=== PATIENT | female | born 1965 | race African-American/Black ===

== ENCOUNTER 2019-01-17 17:18 | Inpatient (IN) ==
[2019-01-17 18:14] LABS: HEMATOCRIT 28.4 % (37.0-47.0); HEMOGLOBIN 9.3 g/dL (12.0-16.0); MCH 25.1 PG (27-31); MCHC 32.7 g/dL (33-37); MCV 76.5 FL (81-99); RBC 3.71 XMIL (4.2-5.4); RDW 17.7 % (11.5-14.5); WBC 9.78 X1000 (4.8-10.8)
[2019-01-17 18:15] LABS: BASO# 0.04 X1000 (0.0-0.2); BASO% 0.4 % (0.0-0.8); EOS# 0.01 X1000 (0.0-0.7); EOS% 0.1 % (0.0-10.0); IMM GRAN# 0.02 X1000 (0.0-0.04); LYMPH# 0.68 X1000 (1.2-3.4); LYMPH% 6.9 % (20.5-51.1); MONO# 0.44 X1000 (0.11-0.59); MONO% 4.1 % (1.7-9.3); MPV 10.4 FL (7.4-10.4); NEUT# 8.68 X1000 (1.4-6.5); NEUT% 87.9 % (42.2-75.2); PLT 376 X1000 (130-400)
[2019-01-17 18:21] LABS: INR 0.9; PROTIME 12.6 Seconds (11.0-16.0)
[2019-01-17 18:24] LABS: AGAP 11; ALKALINE PHOSPHATASE 54 U/L (32-104); BUN 44 mg/dL (8-22); CALCIUM 8.9 mg/dL (8.8-10.2); CHLORIDE 108 mmol/L (98-107); COSMO 294; CREATININE 0.6 mg/dL (0.5-0.9); ESTIMATED GFR > 60; GLUCOSE 125 mg/dL (70-104); GOT 12 U/L (10-30); GPT 11 U/L (10-36); POTASSIUM 3.9 mmol/L (3.5-5.1); SODIUM 141 mmol/L (136-145); TCO2 22 mmol/L (25-35); TOTAL PROTEIN 7.3 g/dL (6.3-8.3)
[2019-01-17 18:33] LABS: ANISOCYTOSIS 1+; LYMPHS 6 % (21-51); MICROCYTOSIS 1+; MONO 3 % (1-9); SEGS 91 % (42-75)
[2019-01-17 18:58] LABS: BILIRUBIN URINE NEGATIVE (NEGATIVE); BLOOD URINE 4+ (NEGATIVE); GLUCOSE URINE NEGATIVE (NEGATIVE); KETONE URINE NEGATIVE (NEGATIVE); LEUKOCYTES URINE TRACE (NEGATIVE); NITRITE URINE NEGATIVE (NEGATIVE); PROTEIN URINE NEGATIVE (NEGATIVE); SP GRAVITY URINE 1.015; UROBILINOGEN URINE NORMAL
[2019-01-17 18:59] LABS: CLARITY CLOUDY (CLEAR); COLOR BROWN; URINE SOURCE CLEAN CATCH
[2019-01-17 19:01] LABS: URINE BACTERIA 4+ /HFP; URINE CAST NONE SEEN /LPF; URINE CRYSTAL NONE SEEN /HPF; URINE EPITHELIAL CELLS >10 /HPF (<10); URINE WBC <10 /HPF (<10); URINE YEAST NONE SEEN /HPF
[2019-01-17] MEDS ORDERED: PROTONIX IV ONE (19:17)
[2019-01-17] MEDS ORDERED: SODIUM CHLORIDE 0.9% INJ ONE (19:17)
[2019-01-17] MEDS ORDERED: NS 1,000 ML IV ONE ×3 (19:17→23:05)
[2019-01-17] MEDS ORDERED: MORPHINE IV ONE (19:19)
[2019-01-17] MEDS ORDERED: ZOFRAN IV ONE (19:19)
[2019-01-17] MEDS ORDERED: ZOFRAN IV PRN ×2 (19:20→23:06)
--- NOTE | 2019-01-17 19:20 | PROVIDER DOCUMENTATION ---
HPI-Abdominal Pain/GI Problem - General Chief Complaint: GI Bleed Stated Complaint: VOMITING Time Seen by Provider: 01/17/19 18:57 Source: patient Allergies/Adverse Reactions: Patient Allergies Allergy/AdvReac Type Severity Reaction Status Date / Time No Known Allergies Allergy Verified 12/03/14 06:48 Home Medications: Home Medication List Medication Instructions Recorded Confirmed Last Taken Type NK [No Home Medications] 01/18/19 01/18/19 Unknown History - History of Present Illness-ABD Nature of Presenting Problems: Patient is a 53 year old black female with history of sarcoidosis and daily use of Goody powder for arthritis complaining of coffee ground emesis and melena since this am. Denies current use of blood thinners. Abdominal Pain Onset Location: reports: generalized abdomen Pain Radiation: reports: no radiation Timing: reports: intermittent Dark Stools Present?: reports: black Emesis Description: reports: coffee grounds Bruising or Bleeding Gums?: No Similar Symptoms Previously?: No Recently seen or treated by another doctor?: No Review of Systems - Adult - REVIEW OF SYSTEMS - ADULT Constitutional: reports: see HPI. denies: chills, fever Eyes: reports: no symptoms reported Ears, Nose, Mouth & Throat: reports: no symptoms reported Cardiovascular: reports: no symptoms reported Respiratory: denies: shortness of breath Gastrointestinal: reports: abdominal pain, hematemesis, nausea, rectal bleeding Genitourinary: denies: dysuria Musculoskeletal: reports: no symptoms reported Integumentary: reports: no symptoms reported Neurological: reports: no symptoms reported Psychiatric: reports: no symptoms reported Endocrine: reports: no symptoms reported Hematologic/Lymphatic: reports: see HPI Allergic/Immunologic: reports: no symptoms reported All Other Systems: Reviewed and Negative Past History - Adult - PAST MEDICAL HISTORY-ADULT Review of Records: reports: Old Records Reviewed, Nursing Assessment Review, Medications Reviewed, Social history reviewed & non-contributory. Major Childhood Illnesses: reports: denies history Cardiovascular: reports: denies history Respiratory: reports: denies history Gastrointestinal: reports: denies history Genitourinary: reports: denies history Musculoskeletal: reports: denies history Neurological: reports: denies history Endocrine/Immune: reports: anemia, other Other Conditions: reports: denies history - PRIOR SURGERIES/PROCEDURES Surgical/Procedure History: reports: none - FAMILY HISTORY Family History: reviewed, not pertinent Physical Exam-General - PHYSICAL EXAM-ADULT Initial Vital Signs Reviewed: Yes - CONSTITUTIONAL General Appearance: alert, no apparent distress - EYES Eyes: other (clear, pale mucosa) - HEAD, EARS, NOSE, MOUTH & THROAT HENMT: moist mucous membranes - NECK Neck: non-tender, full range of motion, supple - RESPIRATORY Respiratory: lungs clear - CARDIOVASCULAR Cardiovascular: tachycardia - GASTROINTESTINAL (ABDOMEN) Abdominal Exam: soft, other (firm enlarged uterus, no active bleeding, heme positive dark stools). negative: guarding, rebound - LYMPHATIC Lymphatic: no adenopathy - MUSCULOSKELETAL Back Exam: normal inspection Extremity: normal range of motion, non-tender - SKIN Integumentary: other (pale) - NEUROLOGIC Neurologic: grossly normal - PSYCHIATRIC Psych/Mental Status: anxious Progress - PLAN OF CARE/RESULTS Progress/Plan/Lab Results: Vital Signs - 8 hr 01/17/19 17:27 Temperature 98 F Pulse Rate 129 H Respiratory Rate 18 Blood Pressure 128/52 O2 Sat by Pulse Oximetry 99 Laboratory Results - last 24 hr 01/17/19 01/17/19 01/17/19 17:50 17:50 17:50 WBC 9.78 RBC 3.71 L Hgb 9.3 L Hct 28.4 L MCV 76.5 L MCH 25.1 L MCHC 32.7 L RDW Std Deviation 17.7 H Plt Count 376 MPV 10.4 Neut % (Auto) 87.9 H Lymph % (Auto) 6.9 L [place] % (Auto) 4.1 Eos % (Auto) 0.1 Baso % (Auto) 0.4 Immature Gran # (Auto) 0.02 Neut # (Auto) 8.68 H Lymph # (Auto) 0.68 L [place] # (Auto) 0.44 Eos # (Auto) 0.01 Baso # (Auto) 0.04 Segmented Neutrophils 91 H Lymphocytes 6 L Monocytes 3 Anisocytosis 1+ Microcytosis 1+ PT INR Sodium 141 Potassium 3.9 Chloride 108 H Carbon Dioxide 22 L Anion Gap 11 BUN 44 H Creatinine 0.6 Estimated GFR/1.73 m2 > 60 BUN/Creatinine Ratio 73 Glucose 125 H Calculated Osmolality 294 Calcium 8.9 Total Bilirubin 0.30 AST 12 ALT 11 Alkaline Phosphatase 54 Total Protein 7.3 Albumin 4.0 Globulin 3.0 Albumin/Globulin Ratio 1.0 Urine Source Urine Color Urine Clarity Urine pH Ur Specific [place] Urine Protein Urine Ketones Urine Blood Urine Nitrite Urine Bilirubin Urine Urobilinogen Urine Microscopic RBC Urine WBC Urine Microscopic WBC Ur Epithelial Cells Urine Crystals Urine Bacteria Urine Casts Urine Yeast Urine Glucose Urine Test Blood Type A POSITIVE Antibody Screen NEGATIVE 01/17/19 01/17/19 01/17/19 17:50 18:30 18:30 WBC RBC Hgb Hct MCV MCH MCHC RDW Std Deviation Plt Count MPV Neut % (Auto) Lymph % (Auto) [place] % (Auto) Eos % (Auto) Baso % (Auto) Immature Gran # (Auto) Neut # (Auto) Lymph # (Auto) [place] # (Auto) Eos # (Auto) Baso # (Auto) Segmented Neutrophils Lymphocytes Monocytes Anisocytosis Microcytosis PT 12.6 INR 0.90 Sodium Potassium Chloride Carbon Dioxide Anion Gap BUN Creatinine Estimated GFR/1.73 m2 BUN/Creatinine Ratio Glucose Calculated Osmolality Calcium Total Bilirubin AST ALT Alkaline Phosphatase Total Protein Albumin Globulin Albumin/Globulin Ratio Urine Source CLEAN CATCH Urine Color BROWN Urine Clarity CLOUDY A Urine pH 5.0 Ur Specific [place] 1.015 Urine Protein NEGATIVE Urine Ketones NEGATIVE Urine Blood 4+ Urine Nitrite NEGATIVE Urine Bilirubin NEGATIVE Urine Urobilinogen NORMAL Urine Microscopic RBC 10-20 A Urine WBC TRACE A Urine Microscopic WBC <10 Ur Epithelial Cells >10 A Urine Crystals NONE SEEN Urine Bacteria 4+ Urine Casts NONE SEEN Urine Yeast NONE SEEN Urine Glucose NEGATIVE Urine Test NEGATIVE Blood Type Antibody Screen Orders Category Date Time Status CBC WITH DIFF [HEME] Stat Lab 01/17/19 17:50 Completed COMPREHENSIVE METABOLIC PANEL [CHEM] Stat Lab 01/17/19 17:50 Completed OCCULT BLOOD SCREEN STOOL PL Stat Lab 01/17/19 17:47 Ordered TEST-URINE [PREG] Stat Lab 01/17/19 18:30 Completed PROTIME WITH INR [COAG] Stat Lab 01/17/19 17:50 Completed TYPE & SCREEN [BBK] Stat Lab 01/17/19 17:[address] W/POSS RFLX CULT [URINALYSIS] Stat Lab 01/17/19 18:30 Completed URINE CULTURE [RM] Routine Lab 01/17/19 19:02 Ordered 0.9% Sodium Chloride Inj [Ns] 1,000 ml Med 01/17/19 19:17 Active IV 999 mls/hr Pantoprazole [Protonix] Med 01/17/19 19:17 Once 40 mg IV NOW ONE Sodium Chloride 0.9% Med 01/17/19 19:17 Once 10 ml INJ NOW ONE Result Diagrams: 01/18/19 01:25 01/17/19 17:50 - CONSULTS/PCP/HOSPITALIST Notification #1 *Consult/PCP/Hospitalist*: Dr. Reddy, GI doctor Time Discussed: 19:15 Reason/Comments: transfer to [facility] to hospitalist service Consult Disposition: Admit #2 Consult: Dr. Viera, hospitalist Time Discussed: 19:25 Reason/Comments: accepts patient Consult Disposition: Admit Departure - Departure Date of Disposition Decision: 01/17/19 Time of Disposition Decision: 23:56 DIAGNOSIS: GI bleeding Qualifiers: GI bleed type/associated pathology: melena Qualified Code(s): K92.1 - Melena Anemia Qualifiers: Anemia type: unspecified type Qualified Code(s): D64.9 - Anemia, unspecified Disposition: ADMITTED INPATIENT 09 Certified Medical Emergency: Emergent Condition: Stable - Critical Care Note This patient required my direct & personal management of CC.: No Total Time (mins): 45 Critical Care Statement: This patient required my direct personal management to treat or rule out processes, the absence of which, could potentiallly result in sudden, clinically significant life or limb threatening deterioration. Attestation - Physician/ NHUNG Attestation Patient care was provided by Advanced Practice Provider:: No The physician spent face to face time with patient:: Yes Advanced Practice Provider documentation review:: Supervising physician onsite and consulted in the evaluation and care of this patient. The physician did have a face to face encounter with the patient.
[2019-01-17] MEDS: PROTONIX 80 MG in NS 80 ML IV SCH (20:10)
[2019-01-17 21:42] LABS: HEMATOCRIT 24.1 % (37.0-47.0); HEMOGLOBIN 7.9 g/dL (12.0-16.0)
[2019-01-17] MEDS: MORPHINE IV PRN (23:31)
[2019-01-18 01:36] LABS: HEMATOCRIT 22.6 % (37.0-47.0); HEMOGLOBIN 7.2 g/dL (12.0-16.0)
--- NOTE | 2019-01-18 04:04 | HISTORY AND PHYSICAL ---
CHIEF COMPLAINT: Coffee-ground emesis as well as melena, recent onset. HISTORY OF PRESENT ILLNESS: Ms. Nikia Concepcion is a 51-year-old female who has a history of sarcoidosis, hypertension, rheumatoid arthritis, and presents to the hospital because of coffee- ground emesis as well as melena which has been of recent onset. She has had associated abdominal pains. She denies any diarrhea or constipation. No fever. The patient was seen and evaluated in the ER. The patient has been started on a proton pump inhibitor, and also she is noted to be anemic. Initial hematocrit being 28.4. The patient admitted now to the floor for further management. PAST MEDICAL HISTORY: Sarcoidosis, hypertension, rheumatoid arthritis. SOCIAL HISTORY: Patient smokes cigarettes and drinks alcohol. ALLERGIES: No known drug allergies. FAMILY HISTORY: Positive for cancer. PAST SURGICAL HISTORY: She has had a [*] in the past. MEDICATIONS INCLUDE: 1. Tylenol with Codeine 1 every 6 hours p.r.n. 2. Lisinopril/hydrochlorothiazide 20-12.5 daily. 3. Prednisone 10 mg p.o. twice a day. REVIEW OF SYSTEMS: Constitutional: No fevers. SMASHER HAND: Has headaches. Respiratory: Has cough. Cardiovascular: No chest pain. Genitourinary: No dysuria. Musculoskeletal: Has chest pains. Psychiatry: Has depression. Dermatology: Has skin lesions. Hematology: No bleeding problems. Endocrinology: No diabetes. No thyroid disease. PHYSICAL EXAMINATION: VITAL SIGNS ARE FOLLOWS: Temperature 97.9 degrees, pulse 106, respirations 17, blood pressure 165/72, oxygen saturation is 100%. HEENT: Atraumatic, normocephalic. She is anicteric. Extraocular movements intact. No oral lesions noted. NECK: No lymphadenopathy, no thyromegaly. CARDIOVASCULAR: S1, S2. RESPIRATORY SYSTEM: Has evidence of good air entry bilaterally. ABDOMEN: Distended and she does have a suprapubic mass which is palpable. No significant tenderness. EXTREMITIES: No evidence of edema. CENTRAL NERVOUS SYSTEM: No obvious focal deficits noted. LABS: WBC 9.78, hematocrit is 24.4, with a platelet count of 376,000. INR is 0.9. Serum sodium is 141, potassium 3.9, chloride is 108, bicarb 23, BUN is 44, creatinine 0 6. Urine is cloudy with trace amount of WBCs. ASSESSMENT AND PLAN: This is a 51-year-old female who presented to hospital because of coffee- ground emesis as well as melena. She is noted to have an abdominal mass. 1. Gastrointestinal bleed. We will maintain patient on proton pump inhibitor. Monitor hemoglobin and hematocrit, transfuse packed red blood cells as needed. Consult with Gastroenterology. 2. Anemia. Check iron studies along with a B12, and also folate levels. Transfuse packed red blood cells as needed. 3. History of sarcoidosis. Continue prednisone. 4. History of rheumatoid arthritis. Continue analgesics/steroids. 5. Hypertension. Continue current antihypertensive regimen. 6. Abdominal mass. CT abdomen and pelvis done, report pending. 7. Deep vein thrombosis prophylaxis. Sequential compression devices. 8. Gastrointestinal prophylaxis. Proton pump inhibitor. cc: Des Viera MD
[2019-01-18] MEDS: PROTONIX 80 MG in NS 80 ML IV SCH ×2 (05:36→16:53)
--- NOTE | 2019-01-18 08:15 | Diag Imaging Result Doc PS360 ---
EXAM: CT ABD/PELVIS W/IV CONT ONLY HISTORY: gi bleed TECHNIQUE: CT abdomen and pelvis with intravenous contrast COMPARISON: None. FINDINGS: No calcified gallstones or adjacent inflammation. No focal hepatic abnormality although there is mild fatty infiltration. Tiny hiatal hernia. Normal spleen, pancreas, adrenal glands, and kidneys. No hydronephrosis. Normal aorta. The uterus is markedly enlarged measuring at least 16 x 17 x 18 cm. It contains multiple hypodense masses. Several of these contain calcification. The largest measures over 13 mm. Normal left ovary. The right ovary is not identified. The urinary bladder is mildly distended and is normal. IMPRESSION: Markedly enlarged uterus containing multiple fibroids A preliminary report was given at 1:45 AM This exam was performed using automated exposure control, adjustment of mA or kV according to patient size, and/or use of iterative reconstruction technique. Electronically signed by [place] 01/18/2019 8:12 AM
[2019-01-18] MEDS ORDERED: DIPRIVAN 1% ONE ×2 (08:47→10:52)
[2019-01-18] MEDS: PRINZIDE 20/12.5MG PO SCH (12:29)
[2019-01-18] MEDS: PREDNISONE PO SCH ×2 (12:29→21:01)
[2019-01-18] MEDS: CARAFATE LIQUID PO SCH ×2 (12:29→18:27)
[2019-01-18 13:25] LABS: BASO# 0.03 X1000 (0.0-0.2); BASO% 0.3 % (0.0-0.8); EOS# 0.18 X1000 (0.0-0.7); EOS% 2.1 % (0.0-10.0); HEMATOCRIT 30.4 % (37.0-47.0); HEMOGLOBIN 9.7 g/dL (12.0-16.0); LYMPH# 1.09 X1000 (1.2-3.4); LYMPH% 12.5 % (20.5-51.1); MCH 26.5 PG (27-31); MCHC 31.9 g/dL (33-37); MCV 83.1 FL (81-99); MONO# 0.65 X1000 (0.11-0.59); MONO% 7.4 % (1.7-9.3); MPV 10.7 FL (7.4-10.4); NEUT% 77.7 % (42.2-75.2); PLT 240 X1000 (130-400); RBC 3.66 XMIL (4.2-5.4); RDW 17.3 % (11.5-14.5); WBC 8.75 X1000 (4.8-10.8)
[2019-01-18 14:07] LABS: AGAP 8; ALB/GLOB RATIO 1.6; ALBUMIN 3.6 g/dL (3.5-5.0); ALKALINE PHOSPHATASE 45 U/L (32-104); BUN 27 mg/dL (8-22); CALCIUM 8.6 mg/dL (8.8-10.2); CHLORIDE 110 mmol/L (98-107); COSMO 286; CREATININE 0.7 mg/dL (0.5-0.9); ESTIMATED GFR > 60; GLUCOSE 98 mg/dL (70-104); GOT 14 U/L (10-30); GPT 10 U/L (10-36); POTASSIUM 4.2 mmol/L (3.5-5.1); SODIUM 141 mmol/L (136-145); TCO2 23 mmol/L (25-35); TOTAL BILIRUBIN 0.35 mg/dL (0.20-1.00); TOTAL PROTEIN 5.9 g/dL (6.3-8.3)
[2019-01-18 14:20] LABS: IRON SATURATION 6 %; TIBC 370 ug/dL; TOTAL IRON 22 ug/dL (49-151); UNBOUND IRON 348 ug/dL (112-346)
[2019-01-18 14:38] LABS: FERRITIN 11 ng/mL (13-150)
--- NOTE | 2019-01-18 15:00 | PROGRESS NOTE ---
DATE: 01/18/2019 SUBJECTIVE: This patient is resting comfortably in bed. She is complaining of some abdominal discomfort. Otherwise, she is feeling good. OBJECTIVE: Vital Signs: Temperature 98 degrees, pulse 94, respiratory rate 18, blood pressure 156/72, oxygen saturation 100% on room air. HEENT: Head normocephalic. No trauma. PERRLA. Neck: Supple. No JVD. No masses. Central trachea. Chest: Clear to auscultation. No wheezing. No rales. Abdomen: Soft. Tenderness to palpation at the level of the epigastric area. I do feel some irregular induration at the level of the suprapubic area. Extremities: No edema. No clubbing. No cyanosis. Neurological: The patient is alert and oriented x3. No focal deficits. LABORATORY: WBC 8.7, hemoglobin 9.7, hematocrit 30.4, platelet 240,000. Sodium 141, potassium 4.2, chloride 110, bicarbonate 23, BUN 27, creatinine 0.7, glucose 98, calcium 8.2. Iron 22, ferritin level is 11. ASSESSMENT AND PLAN: 1. Upper gastrointestinal bleed. This patient has been already scoped by Gastroenterology Department. They apparently found a gastric ulcer. We will continue with Protonix and follow the recommendations of Gastroenterology Department. I discussed the case with Dr. Reddy who wants to keep the patient at least 48 hours to see if she rebleeds. Monitor the hemoglobin and hematocrit. 2. History of sarcoidosis. Aware. 3. Iron deficiency anemia. She already received some blood transfusion, 2 of them. Will monitor. 4. Hypertension. Continue with the same management. 5. Abdominal mass. CT of the abdomen has been done and reporting a markedly enlarged uterus containing multiple fibroids. 6. Gastrointestinal prophylaxis with proton pump inhibitors. 7. Deep vein thrombosis prophylaxis with SCDs due to her recent GI bleed. cc: Clarence Umana MD
--- NOTE | 2019-01-18 16:31 | OPERATIVE NOTE ---
PROCEDURE DATE: 01/18/2019 REFERRING PHYSICIAN: Dr. Buenrostro. PROCEDURE: Esophagogastroduodenoscopy. POSTOPERATIVE DIAGNOSES: 1. Hematemesis at home. 2. Melena. 3. Anemia, requiring blood transfusion. 4. History of Goody Powders, taking almost every day, last one was on Saturday. POSTOPERATIVE DIAGNOSES: 1. Esophagitis in distal esophagus. 2. Irregular Z-line at 33 cm. 3. 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 we did not biopsy. 4. Hiatal hernia 3 to 4 cm, sliding type. 5. Evidence of a large gastric antral ulcer, clean base. 6. Evidence of erosive gastric body antrum. 7. Normal fundus, cardia, incisura on retroflexion. Normal duodenal bulb, second portion. 8. No evidence of active bleeding. Fresh or old blood noted in the entire EGD. ESTIMATED BLOOD LOSS: None. COMPLICATIONS: None. ANESTHESIA: Monitored anesthesia care per the anesthesiologist. SPECIMENS COLLECTED: None. PROCEDURE DETAILS: After informed consent, the patient explained the risks, benefits, indications, alternatives to the procedure of EGD. The risks and benefits of the procedure, including infection, bleeding, pain, trauma to the surrounding structures, perforation, , were explained to the patient among others and she acknowledged this and agreed to proceed with the procedure. The patient was brought to the OR. She was turned to the left lateral position. A bite block was placed in patient mouth. After adequate monitored anesthesia, the upper scope was introduced all the way to the second portion of the duodenum. The esophagus was normal. The proximal, middle third and distal showed there was evidence of irregular Z-line at 33 cm. There was evidence of probable Monae esophagus measuring about 3 cm in the form of a tongue. There was evidence of esophagitis distal esophagus in the form of erythema, erosions suggesting reflux esophagitis LA grade 1. There was evidence of hiatal hernia, 3 to 4 cm, sliding type. There was evidence of stomach ulcers in the gastric antrum measuring about 1 cm, a clean base. There was evidence of surrounding erythema and erosive gastritis in the body and antrum. Retroflexion of normal fundus, cardia, incisura. The duodenal bulb and second portion of duodenum appeared normal. There was no evidence of active bleeding. Fresh or old blood in the entire EGD. The base of the ulcer was clean. There was no evidence of any visible vessel or clot. The air was slowly withdrawn. The patient tolerated this well and is currently monitored in the OR in stable condition. RECOMMENDATIONS: 1. The patient will be on a clear liquid diet for the next two days and advance as tolerated. 2. Patient will be on Protonix drip for 72 hours and then wean down to Protonix twice daily for 3 months. We will start patient on Carafate 1 g 6 hours for 6 weeks. Next, the patient will start on Iron C b.i.d. and multivitamin once daily. 3. The patient will follow up with me in 4 weeks of discharge. The patient will need repeat EGD to document healing of the ulcer. Patient counseled to quit using Goody's Powders and other NSAIDs completely. 4. The patient has sarcoidosis, she is on prednisone. So she could have delayed healing of the ulcer. So we will treat her with Protonix twice daily on discharge. 5. We will continue to follow blood counts, transfuse as needed. 6. Above discussed with the patient's family. All questions answered. 7. Further recommendations are pending the hospital course. Please call us with any further questions. cc: MD Vu Alofrd [facility]
[2019-01-18] MEDS: MORPHINE IV PRN (18:54)
[2019-01-18] MEDS: ICAR-C PO SCH (21:01)
[2019-01-19] MEDS: PROTONIX 80 MG in NS 80 ML IV SCH ×3 (02:00→21:41)
[2019-01-19] MEDS: CARAFATE LIQUID PO SCH ×5 (02:00→23:26)
[2019-01-19 07:28] LABS: BASO# 0.02 X1000 (0.0-0.2); BASO% 0.2 % (0.0-0.8); EOS# 0.11 X1000 (0.0-0.7); EOS% 1.2 % (0.0-10.0); HEMATOCRIT 30.3 % (37.0-47.0); IMM GRAN# 0.02 X1000 (0.0-0.04); IMM GRAN% 0.2 % (0.0-0.5); LYMPH# 1.37 X1000 (1.2-3.4); LYMPH% 15.1 % (20.5-51.1); MCH 26.3 PG (27-31); MCV 79.7 FL (81-99); MONO# 0.59 X1000 (0.11-0.59); MONO% 6.5 % (1.7-9.3); MPV 10.5 FL (7.4-10.4); NEUT# 6.99 X1000 (1.4-6.5); NEUT% 76.8 % (42.2-75.2); PLT 262 X1000 (130-400); RDW 16.9 % (11.5-14.5)
[2019-01-19 08:28] LABS: AGAP 11; BUN 12 mg/dL (8-22); CALCIUM 8.8 mg/dL (8.8-10.2); CHLORIDE 104 mmol/L (98-107); COSMO 276; CREATININE 0.6 mg/dL (0.5-0.9); ESTIMATED GFR > 60; GLUCOSE 101 mg/dL (70-104); SODIUM 138 mmol/L (136-145); TCO2 23 mmol/L (25-35)
[2019-01-19] MEDS: MORPHINE IV PRN ×2 (08:35→14:23)
[2019-01-19] MEDS: PRINZIDE 20/12.5MG PO SCH (08:36)
[2019-01-19] MEDS: ICAR-C PO SCH ×2 (08:36→21:41)
[2019-01-19] MEDS: CENTRUM SILVER PO SCH (08:36)
[2019-01-19] MEDS: PREDNISONE PO SCH ×2 (08:36→21:41)
--- NOTE | 2019-01-19 10:39 | PROGRESS NOTE ---
DATE: 01/19/2019 SUBJECTIVE: Patient is resting comfortably in bed. She is not complaining of nausea, vomiting, diarrhea or constipation, some abdominal discomfort. Otherwise, she is feeling good. OBJECTIVE: Vital Signs: Temperature 98.1 degrees, pulse 86, respiratory rate 16, blood pressure 147/73 and oxygen saturation 100% on room air. HEENT: Head normocephalic. No trauma. PERRLA. Neck: Supple. No JVD. No masses. Central trachea. Chest: Clear to auscultation. No wheezing. No rales. Abdomen: Soft. Tender to palpation at the level of the epigastric area. I do feel some irregular induration at the level of the suprapubic and the midportion of the abdomen. CT scan showed uterine fibroids which is really large. Extremities: No edema. No clubbing. No cyanosis. Neurological: The patient is alert and oriented x3. No focal neurological deficits. LABORATORY: WBC 9.1, hemoglobin 10, hematocrit 30.3, and platelets 262,000. Sodium 138, potassium 4, chloride 104, bicarbonate 23, BUN 12, creatinine 0.6 glucose 101, and calcium 8.8. ASSESSMENT AND PLAN: 1. 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 Also, she has a large gastric antral ulcer with clean base, erosive gastritis at the level of the body and antrum. It has been recommended to continue with Protonix for 72 hours, and then wean down to Protonix twice a day for 3 months. She has been started on Carafate, multivitamins. 2. History of sarcoidosis. Aware. 3. Iron deficiency anemia, status post 2 PRBC's. Hemoglobin improved from 7.2 yesterday to 10 today. 4. Hypertension. Continue with same management. 5. Abdominal mass, CT of the abdomen has been done and showed a large uterus containing multiple fibroids. This patient will need to follow up as an outpatient with [facility]. 6. Gastrointestinal prophylaxis with proton pump inhibitors. 7. Deep vein thrombosis prophylaxis with SCD's due to her recent GI bleed. 8. Overall, this patient is doing fine. She is complaining of some abdominal discomfort, but she is better. The plan is to continue with Protonix drip and then switch to p.o. If everything is okay tomorrow, this patient can be discharged. She will need also to follow up with [facility]. cc: Clarence Umana MD
--- NOTE | 2019-01-19 14:44 | GASTROENTEROLOGY PROGRESS NOTE ---
DATE: 01/19/2019 SUBJECTIVE: Patient is resting in bed. She is feeling better. She denies any nausea, vomiting, vomiting blood, or passing blood in the stools. She is eating better. Her is at bedside. She denies any fevers, rigors, chills. She has abdominal discomfort in the epigastrium region. OBJECTIVE: Vital Signs: Temperature 98.1, pulse of 86, respiratory rate of 16, blood pressure 147/73, saturating 100% on room air. General Appearance: Thinly built, lying in bed, in no acute distress. HEENT: Pale conjunctivae. No icterus. Neck: Supple. Abdomen: Mild discomfort in the epigastrium region. No rebound. No guarding. Extremities: No cyanosis or clubbing. Neurologic: Alert, awake, and oriented x3. LABORATORY DATA: Hemoglobin and hematocrit are 10 and 30.3, white count of 9.1, platelet count of 262,000. Sodium 130, potassium 4, chloride 104, bicarb 23, anion gap of 11, BUN of 12, creatinine 0.6. Glucose of 101. Calcium is 8.8. AST 14. ALT 10. Alkaline phosphatase 45. Total protein is 5.9. Albumin of 3.6. Vitamin B12 of 1142. IMPRESSION AND PLAN: 1. Gastric ulcer in the gastric antrum. In this regard, the patient was to stay on Protonix twice daily for 3 months. She will need repeat esophagogastroduodenoscopy in 3 months document healing ulcer. 2. Hiatal hernia. She will follow gastroesophageal reflux changes. 3. Irregular Z-line and possible Monae's esophagus measuring about 3 cm. Will biopsy on repeat EGD to confirm the possibility. 4. Hypertension. being managed per the primary team. 5. Anemia is improving. She has received 2 units of blood transfusion. We will keep her on iron and multivitamin supplementation. 6. Uterine fibroids, aware. 7. GI prophylaxis with PPIs. 8. DVT prophylaxis with sequential compression devices. 9. We will advance the diet tomorrow. 10. Sarcoidosis. She is on prednisone 10 mg p.o. b.i.d. 11. The above plans discussed with the patient and patient's family and all questions answered. Please call us with any further questions. cc: Yunier Reddy MD [facility]ITAL[facility]andrika
[2019-01-20] MEDS: CARAFATE LIQUID PO SCH ×3 (06:13→18:31)
[2019-01-20 07:33] LABS: HEMATOCRIT 31.4 % (37.0-47.0); HEMOGLOBIN 10.2 g/dL (12.0-16.0)
[2019-01-20] MEDS: PROTONIX 80 MG in NS 80 ML IV SCH ×2 (08:05→18:32)
[2019-01-20] MEDS: PRINZIDE 20/12.5MG PO SCH (08:06)
[2019-01-20] MEDS: CENTRUM SILVER PO SCH (08:06)
[2019-01-20] MEDS: ICAR-C PO SCH ×2 (08:06→21:02)
[2019-01-20] MEDS: PREDNISONE PO SCH ×2 (08:06→21:02)
[2019-01-20] MEDS: MORPHINE IV PRN ×2 (08:15→20:57)
--- NOTE | 2019-01-20 11:41 | PROVIDER PROGRESS NOTE ---
Progress Note SUBJECTIVE: No N/V/F, CP, SOB, abdominal pain, rectal bleeding. No BM. Reports appetite. Tolerating liquids OBJECTIVE: Last Vital Signs Temp 98.7 F 01/20/19 07:45 Pulse 80 01/20/19 07:45 Resp 17 01/20/19 04:00 BP 146/68 01/20/19 07:45 Pulse Ox 99 01/20/19 08:36 Height 5 ft 4 in Weight 148 lb GEN: awake, alert, NAD HEENT: anicteric, MMM NECK: supple, no jvd PULM: CTAB, no wheezing ABD: soft, NT/ND, NABS, no rebound or guarding EXT: no cce NEURO: nonfocal LABS: 01/20/19 07:00 Hgb 10.2 L Hct 31.4 L A/P: Ms. Renee is a 53 year old woman with sarcoidosis, HTN, GERD admitted with UGIB bleed secondary to PUD; NSAID-induced. Bleeding resolved. Hgb stable. EGD also notable for possible Monae's. #UGIB: resolved; on PPI; advance diet as tolerated #PUD: NSAID induced; continue PPI BID for 8-12 weeksl then once daily, repeat EGD to assess healing in 8-12 weeks; avoid NSAIDs/ASA #HTN: stable; mgmt per primary #Sarcoidosis: noted; on prednisone Patient is ok to be discharged from GI standpoint if able to tolerate regular diet. Follow-up in GI clinic in 2-4 weeks
--- NOTE | 2019-01-20 16:30 | PROGRESS NOTE ---
DATE: 01/20/2019 SUBJECTIVE: Patient reports feeling fine. A little bit dizzy today. No other complaints noted. OBJECTIVE: Vital Signs: Temperature 98.6, heart rate 82, respiratory rate 13, blood pressure 149/73. O2 saturation 100% on room air. General: This is a 53-year-old female lying in bed in no acute distress. Cardiovascular: S1, S2 heard. No murmurs, gallops or rubs. Regular rate and rhythm. Respiratory: Clear bilaterally to auscultation. No work of breathing or using accessory muscles. Abdomen: Soft, nontender. Bowel sounds present. No organomegaly. Extremities: No clubbing, cyanosis, or edema. Peripheral pulses present in both legs. Neurologic: Patient alert oriented x 3. Moves 4 extremities. LABORATORY DATA: Reviewed. ASSESSMENT AND PLAN: 1. Upper gastrointestinal bleeding secondary to gastritis and duodenitis. Clinically this patient is stable. GI has been following this patient and the recommendation from today is to see how this patient does on a regular diet and if she does okay the patient can be discharged. Patient requested to me one more day to stay in the hospital because she is not feeling completely good. Tomorrow we can switch Protonix to p.o. if there are no issues the patient can be discharged tomorrow morning. 2. Iron-deficiency anemia, status post two PRBCs. Hemoglobin is definitely much better, it is 10.2 today. 3. Hypertension. Blood pressure is under control. We will continue with same management 4. Fibroids. Patient is going to be seen as an outpatient with [facility] doctor. 5. GI prophylaxis, with Protonix. 6. DVT prophylaxis, with SCDs. 7. Disposition: The patient is feeling fine. Patient requests to stay one more day. I think tomorrow if she tolerates regular diet she can be discharged with oral Protonix. cc: Lalo Maloney MD MTDD
[2019-01-20] MEDS ORDERED: SODIUM CHLORIDE 0.9% 10 ML ONE (16:38)
[2019-01-20] MEDS: PROTONIX IV SCH (21:02)
[2019-01-21] MEDS: CARAFATE LIQUID PO SCH ×2 (01:02→05:30)
[2019-01-21] MEDS: MORPHINE IV PRN (01:09)
[2019-01-21 07:28] LABS: BASO# 0.02 X1000 (0.0-0.2); BASO% 0.3 % (0.0-0.8); EOS# 0.12 X1000 (0.0-0.7); EOS% 1.6 % (0.0-10.0); HEMATOCRIT 31.7 % (37.0-47.0); HEMOGLOBIN 10.4 g/dL (12.0-16.0); LYMPH# 1.21 X1000 (1.2-3.4); LYMPH% 15.7 % (20.5-51.1); MCH 26.4 PG (27-31); MCHC 32.8 g/dL (33-37); MCV 80.5 FL (81-99); MONO# 0.74 X1000 (0.11-0.59); MONO% 9.6 % (1.7-9.3); MPV 10.4 FL (7.4-10.4); NEUT# 5.64 X1000 (1.4-6.5); NEUT% 72.8 % (42.2-75.2); PLT 287 X1000 (130-400); RBC 3.94 XMIL (4.2-5.4); RDW 17.1 % (11.5-14.5); WBC 7.73 X1000 (4.8-10.8)
[2019-01-21 07:43] LABS: AGAP 10; BUN 10 mg/dL (8-22); CHLORIDE 101 mmol/L (98-107); COSMO 269; CREATININE 0.6 mg/dL (0.5-0.9); ESTIMATED GFR > 60; GLUCOSE 95 mg/dL (70-104); POTASSIUM 3.7 mmol/L (3.5-5.1); SODIUM 135 mmol/L (136-145); TCO2 24 mmol/L (25-35)
[2019-01-21 08:05] VITALS: BP 144/85
[2019-01-21] MEDS: PROTONIX IV SCH (09:10)
[2019-01-21] MEDS: PRINZIDE 20/12.5MG PO SCH (09:11)
[2019-01-21] MEDS: CENTRUM SILVER PO SCH (09:11)
[2019-01-21] MEDS: PREDNISONE PO SCH (09:11)
[2019-01-21] MEDS: ICAR-C PO SCH (09:11)
--- NOTE | 2019-01-23 04:44 | DISCHARGE SUMMARY ---
ADMISSION DATE: 01/17/2019 DISCHARGE DATE: 01/21/2019 CONSULTS: Gastroenterology, Dr. Reddy. 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 IMAGING: CT abdomen and pelvis showing multiple uterine fibroids, but otherwise unremarkable. DISCHARGE DIAGNOSES: 1. Upper gastrointestinal bleed. 2. Gastric ulcer. 3. Gastritis. 4. Esophagitis with likely Monae's. 5. Acute post hemorrhagic anemia. 6. Iron deficiency. 7. Hypertension. 8. Uterine fibroids. 9. Hypertension. HOSPITAL COURSE: The patient presented initially with coffee-grounds emesis and melena. She was found to be anemic with a hemoglobin of 9.3, which then trended down to 7.2. She required transfusion at that time with adequate response and hemoglobin remained stable thereafter. Discharge hemoglobin 10.4. The EGD was performed by Gastroenterology, which showed ulcers and inflammation, as above. Also, possible Monae's esophagus. She was continued on PPI with stabilization of her blood counts. Patient was found to be iron deficient, so was placed on p.o. iron, which will be continued at discharge. On the day of discharge, she was tolerating a regular diet. Her chronic issues, including hypertension and uterine fibroids, were stable. DISCHARGE VITAL SIGNS: Temperature 98 degrees, pulse 82, respirations 18, blood pressure 144/85, O2 saturation 100% on room air. DISCHARGE MEDICATIONS: 1. Carafate 1 g p.o. t.i.d. 2. Icar-C 1 tablet b.i.d. 3. Lisinopril-hydrochlorothiazide 20-12.5 daily. 4. Protonix 40 mg p.o. b.i.d. 5. Patient to discuss whether to continue her prednisone with her PCP. DISCHARGE DIET: Soft for the next few days, then regular. DISCHARGE FOLLOW-UP AND PLAN: The patient discharging home on b.i.d. PPI and Carafate for her peptic ulcer and severe gastritis/esophagitis. Continue p.o. iron. Continue home blood pressure medications. Discussed with PCP whether continued prednisone is necessary, as it may have been contributing to her ulcer. Avoid NSAIDs. Will need surveillance EGD's with gastroenterology to confirm healing ulcer and to monitor her likely Monae's. Greater than 30 minutes spent arranging discharge and counseling patient. LUÍS
== END 2019-01-21 13:14 | disposition home or self-care (01) | DRG 378 ==
LOC: P.ED 17:18 → 3N 22:29 → SUATTDRO 22:29 → 3N 23:32
PROVIDERS: ATTEND Internal Medicine
CPT/HCPCS: 36415; 36430; 74177; 80048; 80053; 81001; 81025; 82607; 82728; 82746; 83540; 83550; 85014; 85018; 85025; 85610; 86850; 86900; 86901; 86920; 87088; 94761; 96365; 96366; 96375; 96376; 99285; 99291; A9270; C9113; J2270; J2405; J7030; J7506; J7512; P9016; Q9967; S0164